=== PATIENT | male | born 1980 | race Caucasian/White ===

== ENCOUNTER 2023-02-19 18:52 | Observation (INO) ==
[2023-02-19] MEDS ORDERED: Iodixanol (CONTRAST) 320 MG/ML 100 ML SDV IV ONE ×2 (19:10→19:22)
[2023-02-19 19:19] LABS: ABS Eosinophils 0.2 10^3/uL (0.0-0.5); ABS Lymphocytes 1.7 10^3/uL (1.0-4.8); ABS Monocytes 0.4 10^3/uL (0.0-1.1); ABS Neutrophils 4.5 10^3/uL (1.5-7.6); ABS Nucleated RBC 0.01 10^3/ul; Eosinophil % 2.3 %; Hematocrit 34.2 % (38-53); Hemoglobin 11.7 g/dL (13.2-16.3); Lymphocyte % 24.9 %; Mean Corpuscular Hemoglobin 30.2 pg (27-33); Mean Corpuscular Hgb Conc 34.1 g/dL (31-36); Mean Corpuscular Volume 88.6 fL (80-97); Mean Platelet Volume 8.8 fL (7.5-11.2); Nucleated Red Blood Cells % 0.2 /100 WBC (0.0-0.4); Platelet Count 213 10^3/uL (150-450); Red Blood Count 3.86 10^6/uL (4.06-5.63); Red Cell Distribution Width 12.8 % (12-17); White Blood Count 6.8 10^3/uL (3.6-10.2)
[2023-02-19 19:33] LABS: Activated Partial Thrombo Time 28.7 seconds (26.0-38.0); INR 0.94 (0.88-1.18)
[2023-02-19 19:35] LABS: Albumin 4.1 g/dL (3.2-5.2); Albumin/Globulin Ratio 1.3 (1-3); Calcium 9.2 mg/dL (8.6-10.3); Creatinine, Serum 1.21 mg/dL (0.67-1.17); Globulin 3.1 g/dL (2-4); HDL Cholesterol 59.7 mg/dL; Total Bilirubin 0.6 mg/dL (0.2-1.0); Total Protein 7.2 g/dL (6.4-8.9); eGFR CKD-EPI 76.2 (>60)
[2023-02-19] MEDS ORDERED: Dextrose 50% Syringe 50 ml 25 GM/50 ML SYRINGE IV PUSH PRN (22:06)
[2023-02-19 22:10] LABS: Magnesium 1.9 mg/dL (1.9-2.7)
[2023-02-19] MEDS ORDERED: BLOOD GLUCOSE TRANSMITTER MISCELLANEOUS SCH (22:15)
[2023-02-19] MEDS ORDERED: [UNRECOGNIZED DRUG - OTHER] SUBCUT SCH (22:15)
[2023-02-19] MEDS ORDERED: BLOOD GLUCOSE SENSOR MISCELLANEOUS SCH (22:15)
[2023-02-19] MEDS ORDERED: INSULIN PUMP CART AUTOMATED BT SUBCUT SCH (22:15)
[2023-02-19 23:15] LABS: Urine Appearance Clear; Urine Bilirubin Negative (Negative); Urine Blood Negative (Negative); Urine Color Straw; Urine Glucose 1+(50 mg/dL) (Negative); Urine Ketones Negative (Negative); Urine Nitrite Negative (Negative); Urine Protein 2+(100 mg/dL) (Negative); Urine Specific Gravity 1.026 (1.002-1.030); Urine Urobilinogen Negative (Negative)
[2023-02-19 23:20] LABS: Urine Bacteria Absent (Absent); Urine Red Blood Cell 1+(3-5/hpf) (Absent); Urine Squamous Epithelial Cell Present (Absent); Urine White Blood Cell Absent (Absent)
[2023-02-19 23:35] LABS: High Sensitivity Troponin 1 Hr 5 pg/mL (<20)
[2023-02-19 23:53] LABS: TSH Ultra Thyroid Stim Horm 3.09 mcIU/mL (0.34-5.60)
[2023-02-20 02:28] LABS: Ferritin 82.8 ng/mL (24-336)
[2023-02-20 07:18] LABS: Calcium 8.5 mg/dL (8.6-10.3); Creatinine, Serum 1.26 mg/dL (0.67-1.17); Potassium 3.5 mmol/L (3.5-5.0); eGFR CKD-EPI 72.6 (>60)
[2023-02-20] MEDS: Insulin LISPRO FOR INSULIN PUMP SUBCUT SCH ×3 (10:58→18:15)
[2023-02-21 10:03] VITALS: BP 100/63
== END 2023-02-21 12:25 | disposition home or self-care (01) ==
LOC: EDHOLD 18:52 → ED 18:52 → SUATTDRO 21:14 → EDHOLD 02-20 07:29 → MEDTELE 02-20 08:33
PROVIDERS: ADMIT Student in an Organized Health Care Education/Training Program; ATTEND Internal Medicine